=== PATIENT | male | born 1990 | race American Indian/Alaskan Native ===

== ENCOUNTER 2019-01-02 19:00 | Emergency (ER) | payer OTHER ==
[2019-01-02] MEDS ORDERED: Midazolam 5 MG/ML 10 ML MDV ONE (19:14)
[2019-01-02] MEDS ORDERED: Rocuronium 50 MG/5 ML Vial IVPUSH STA ×2 (19:36→21:55)
[2019-01-02] MEDS ORDERED: Midazolam 1 MG/ML 5 ML SDV IVPUSH STA (19:36)
[2019-01-02] MEDS ORDERED: Midazolam 50 MG in Sodium Chloride 0.9% 40 ML IV SCH (19:45)
[2019-01-02] MEDS ORDERED: Sodium Chloride 0.9% 1,000 ML IV SCH (19:45)
--- NOTE | 2019-01-02 19:57 | EDM.PDOC ---
ED HPI GENERAL MEDICAL PROBLEM - General Stated Complaint: [facility] Time Seen by Provider: 01/02/19 19:00 Source of Information: Reports: EMS History Limitations: Reports: Physical Impairment (Unresponsive) - History of Present Illness INITIAL COMMENTS - FREE TEXT/NARRATIVE: A medical alert was called for this patient. According to EMS, the patient was at a friend's house, drinking, when he suddenly collapsed around 18:25 CDT. His friends did bystander CPR and called EMS. EMS states that they arrived on scene about 4 minutes after they were called. They found the patient to be pulseless and apneic. CPR was begun and a laryngeal mask was placed. Narcan was given which did not initially seem to help. An IV and jig filler were placed. There was sinus tachycardia on the monitor, which has persisted the entire time that he has been on the monitor. Amiodarone and 2 mg of epinephrine were given. The patient developed a palpable pulse and respiratory effort, therefore the laryngeal mask was removed. The patient vomited en route. Upon arrival to the ED, the patient was unresponsive, receiving ventilations via BVM. Sinus tachycardia on the monitor. Systolic blood pressure approximately 185, but oxygen saturation in the low 80s, despite receiving 100% oxygen. Pupils pinpoint. Strong heart tones and peripheral pulses. Diffuse rhonchi on pulmonary auscultation. Abdomen soft. The decision was made to intubate for airway protection. The patient may have had a small amount of emesis just prior to being sedated. His head was immediately turned to the right , and his mouth suctioned. The patient's weight was estimated at 90 kg. He received 20 mg of IV Versed and 90 mg of IV rocuronium. An attempt was made to raise the patient's oxygen saturation as much as possible, but despite aggressive bagging, his oxygen saturation remained in the low 80s percent. He was then intubated with a 8.0 OETT, using a Mac 3 blade, to 23 cm at the incisors. The vocal cords were visualized. Positive colorimetric change. Tube fog noted. Positive bilateral chest rise. Breath sounds heard in both axillae. The ET tube was secured. Despite intubation, the patient's oxygen saturation constantino no higher than 88%. An OG tube was placed, followed by a portable chest x-ray, which appears to demonstrate the tip of the ET tube approximately 4.5-5 cm above the nestor, with the tip of the OGT in the esophagus, above the gastric air bubble. There appear to be diffuse opacities throughout both lungs, worse on the left than the right, consistent with aspiration pneumonitis. Formal read per the Radiologist pending. The patient was then taken to CT scan to receive a CT of the head without contrast and a CT angiogram of the chest. Orders were then entered. It does not appear that the patient has been to this ED before, therefore we have no knowledge of past medical, surgical, or social history. - Related Data Allergies Allergy/AdvReac Type Severity Reaction Status Date / Time Unable to Assess Allergy Unverified 01/02/19 20:15 Home Meds: Home Meds . [Unable to Verify Home Med List] 01/02/19 [History] ED ROS GENERAL - Review of Systems Review Of Systems: Unable To Obtain - Physical Exam Exam: See Below Exam Limited By: Other (Unconscious) General Appearance: WD/WN Eye Exam: Bilateral Eye: Abnormal Pupil (1-2 mm) Ears: Normal External Exam Nose: Normal Inspection Throat/Mouth: Normal Inspection, Normal Lips, Normal Teeth, Normal Gums, No Airway Compromise, Other (Uvular swelling noted at the time of intubation) Head Exam: Atraumatic, Normocephalic Neck: Normal Inspection, Supple, Full Range of Motion Respiratory/Chest: No Accessory Muscle Use, Rhonchi. No: Decreased Breath Sounds, Crackles, Wheezing, Stridor, Prolonged Expiration Cardiovascular: Normal Peripheral Pulses, No Edema, No Gallop, No JVD, No Murmur , No Rub, Tachycardia (regular) GI/Abdominal: Soft, No Organomegaly, No Distention, No Abnormal Bruit, No Mass (Male) Exam: Deferred Rectal (Males) Exam: Deferred Neuro Exam (Abbreviated): Unresponsive Extremities: Normal Inspection, Normal Capillary Refill Skin Exam: Warm, Dry, Intact, Normal Color, No Rash EKG INTERPRETATION EKG Date: 01/02/19 Time: 20:31 Rhythm: Other (Sinus tachycardia) Rate (Beats/Min): 147 [place]: Normal P-Wave: Present QRS: Normal (Late transition) ST-T: Normal QT: Prolonged (QYc 524 ms) Comparison: NA - No Prior EKG Course - Vital Signs Last Recorded V/S: Last Vital Signs Temp 36.6 C 01/02/19 20:10 Pulse 147 H 01/02/19 20:18 Resp 12 01/02/19 20:18 BP 152/90 H 01/02/19 20:18 Pulse Ox 80 L 01/02/19 20:18 - Orders/Labs/Meds Orders: Active Orders 24 hr Category Date Time Status EKG Documentation Completion [RC] STAT Care 01/02/19 19:32 Active Insert Oneal Catheter [Insert Urinary Catheter] [OM.PC] Care 01/02/19 19:45 Ordered Q24H Urinary Catheter Assessment [RC] ASDIRECTED Care 01/02/19 19:39 Active CULTURE BLOOD [BC] Stat Lab 01/02/19 20:50 Received CULTURE BLOOD [BC] Stat Lab 01/02/19 21:00 Received Midazolam [Versed 5 MG/ML] 50 mg Med 01/02/19 19:45 Active Sodium Chloride 0.9% [Normal Saline] 40 ml IV TITRATE Rocuronium [Zemuron] Med 01/02/19 21:55 Stat 90 mg IVPUSH ONETIME STA Sodium Chloride 0.9% [Normal Saline] 1,000 ml Med 01/02/19 19:45 Active IV ASDIRECTED Sodium Chloride 0.9% [Normal Saline] 100 ml Med 01/02/19 20:15 Active IV ASDIRECTED Blood Culture x2 Reflex Set [OM.PC] Stat Oth 01/02/19 19:35 Ordered Medication Orders Midazolam HCl 50 mg/ Sodium (Chloride) 50 mls @ 10 mls/hr IV TITRATE WOJCIECH Last Admin: 01/02/19 19:26 Dose: 10 mg/hr, 10 mls/hr Sodium Chloride (Normal Saline) 1,000 mls @ 100 mls/hr IV ASDIRECTED WOJCIECH Last Admin: 01/02/19 19:30 Dose: 100 mls/hr Sodium Chloride (Normal Saline) 100 mls @ 80 mls/hr IV ASDIRECTED WOJCIECH Last Admin: 01/02/19 20:38 Dose: 80 mls/hr Labs: Laboratory Tests 01/02/19 01/02/19 01/02/19 Range/Units 19:10 19:10 19:10 WBC 23.43 H (4.23-9.07) K/mm3 RBC 4.89 (4.63-6.08) M/mm3 Hgb 15.0 (13.7-17.5) gm/L Hct 45.8 (40.1-51.0) % MCV 93.7 H (79.0-92.2) fl MCH 30.7 (25.7-32.2) pg MCHC 32.8 (32.2-35.5) g/dl RDW Std Deviation 44.4 H (35.1-43.9) fL Plt Count 342 H (163-337) K/mm3 MPV 9.6 (9.4-12.3) fl Neutrophils % (Manual) 55 (40-60) % Band Neutrophils % 1 (0-10) % Lymphocytes % (Manual) 33 (20-40) % Atypical Lymphs % 3 % Monocytes % (Manual) 8 (2-10) % Eosinophils % (Manual) 0 L (0.8-7.0) % Basophils % (Manual) 0 L (0.2-1.2) Platelet Estimate Adequate RBC Morph Comment Normal PT (9.5-12.1) SECONDS INR APTT (24-31) SECONDS Puncture Site ABG pH (7.35-7.45) ABG pCO2 (35.0-45.0) mmHg ABG pO2 (80.0-100.0) mmHg ABG HCO3 (22.0-26.0) meq/L ABG O2 Saturation (96.0-97.0) % ABG Base Excess (-2-2.0) Wolf Test A-a Gradient mmHg O2 Delivery Device Oxygen Flow Rate FiO2 (21.00-100.00) % Sodium 143 (136-145) mEq/L Potassium 3.8 (3.5-5.1) mEq/L Chloride 108 H (98-107) mEq/L Carbon Dioxide 16 L (21-32) mEq/L Anion Gap 22.8 H (5-15) BUN 10 (7-18) mg/dL Creatinine 1.3 (0.7-1.3) mg/dL Est Cr Clr Drug Dosing TNP Estimated GFR (MDRD) > 60 (>60) mL/min BUN/Creatinine Ratio 7.7 L (14-18) Glucose 335 H (74-106) mg/dL Lactic Acid 7.1 H (0.4-2.0) mmol/L Calcium 7.6 L (8.5-10.1) mg/dL Magnesium 2.6 H (1.8-2.4) mg/dl Total Bilirubin 0.3 (0.2-1.0) mg/dL AST 110 H (15-37) U/L ALT 105 H (16-63) U/L Alkaline Phosphatase 83 (46-116) U/L Troponin I 0.055 (0.00-0.056) ng/mL Total Protein 7.4 (6.4-8.2) g/dl Albumin 3.7 (3.4-5.0) g/dl Globulin 3.7 gm/dL Albumin/Globulin Ratio 1.0 (1-2) Salicylates (2.8-20) mg/dL Urine Opiates Screen (XRFJBJ=162) Ur Buprenorphine Scrn (CUTOFF=10) Ur Oxycodone Screen (ALP4QK=605) Urine Methadone Screen (SYD7ZB=451) Ur Propoxyphene Screen (HYXGMJ=693) Acetaminophen 0 L (10-30) ug/mL Ur Barbiturates Screen (XTGRXE=308) Ur Tricyclics Screen (PDJCNE=025) Ur Phencyclidine Scrn (CUTOFF=25) Ur Amphetamine Screen (URPTQV=609) U Methamphetamines Scrn (MJXMPE=026) U Benzodiazepines Scrn (NCIWHK=658) U Cocaine Metab Screen (LWYHPB=841) U Marijuana (THC) Screen (CUTOFF=50) Ethyl Alcohol 0.18 (0.00) gm% Ketones (0.0-0.3) mM 01/02/19 01/02/19 01/02/19 Range/Units 19:10 19:10 19:10 WBC (4.23-9.07) K/mm3 RBC (4.63-6.08) M/mm3 Hgb (13.7-17.5) gm/L Hct (40.1-51.0) % MCV (79.0-92.2) fl MCH (25.7-32.2) pg MCHC (32.2-35.5) g/dl RDW Std Deviation (35.1-43.9) fL Plt Count (163-337) K/mm3 MPV (9.4-12.3) fl Neutrophils % (Manual) (40-60) % Band Neutrophils % (0-10) % Lymphocytes % (Manual) (20-40) % Atypical Lymphs % % Monocytes % (Manual) (2-10) % Eosinophils % (Manual) (0.8-7.0) % Basophils % (Manual) (0.2-1.2) Platelet Estimate RBC Morph Comment PT 10.9 (9.5-12.1) SECONDS INR 1.00 APTT 29 (24-31) SECONDS Puncture Site ABG pH (7.35-7.45) ABG pCO2 (35.0-45.0) mmHg ABG pO2 (80.0-100.0) mmHg ABG HCO3 (22.0-26.0) meq/L ABG O2 Saturation (96.0-97.0) % ABG Base Excess (-2-2.0) Wolf Test A-a Gradient mmHg O2 Delivery Device Oxygen Flow Rate FiO2 (21.00-100.00) % Sodium (136-145) mEq/L Potassium (3.5-5.1) mEq/L Chloride (98-107) mEq/L Carbon Dioxide (21-32) mEq/L Anion Gap (5-15) BUN (7-18) mg/dL Creatinine (0.7-1.3) mg/dL Est Cr Clr Drug Dosing Estimated GFR (MDRD) (>60) mL/min BUN/Creatinine Ratio (14-18) Glucose (74-106) mg/dL Lactic Acid (0.4-2.0) mmol/L Calcium (8.5-10.1) mg/dL Magnesium (1.8-2.4) mg/dl Total Bilirubin (0.2-1.0) mg/dL AST (15-37) U/L ALT (16-63) U/L Alkaline Phosphatase (46-116) U/L Troponin I (0.00-0.056) ng/mL Total Protein (6.4-8.2) g/dl Albumin (3.4-5.0) g/dl Globulin gm/dL Albumin/Globulin Ratio (1-2) Salicylates 3.0 (2.8-20) mg/dL Urine Opiates Screen Negative (NYUKNB=006) Ur Buprenorphine Scrn Negative (CUTOFF=10) Ur Oxycodone Screen Negative (QAZ2JN=805) Urine Methadone Screen Negative (NHM6SR=636) Ur Propoxyphene Screen Negative (QEBYPA=046) Acetaminophen (10-30) ug/mL Ur Barbiturates Screen Negative (OGZXSM=795) Ur Tricyclics Screen Negative (PZULHI=346) Ur Phencyclidine Scrn Negative (CUTOFF=25) Ur Amphetamine Screen Negative (SPJDAM=673) U Methamphetamines Scrn Negative (EDBXJF=402) U Benzodiazepines Scrn Negative (FZFBOZ=504) U Cocaine Metab Screen Negative (IKQWEI=019) U Marijuana (THC) Screen Presumptive positive H (CUTOFF=50) Ethyl Alcohol (0.00) gm% Ketones (0.0-0.3) mM 01/02/19 01/02/19 Range/Units 19:10 19:32 WBC (4.23-9.07) K/mm3 RBC (4.63-6.08) M/mm3 Hgb (13.7-17.5) gm/L Hct (40.1-51.0) % MCV (79.0-92.2) fl MCH (25.7-32.2) pg MCHC (32.2-35.5) g/dl RDW Std Deviation (35.1-43.9) fL Plt Count (163-337) K/mm3 MPV (9.4-12.3) fl Neutrophils % (Manual) (40-60) % Band Neutrophils % (0-10) % Lymphocytes % (Manual) (20-40) % Atypical Lymphs % % Monocytes % (Manual) (2-10) % Eosinophils % (Manual) (0.8-7.0) % Basophils % (Manual) (0.2-1.2) Platelet Estimate RBC Morph Comment PT (9.5-12.1) SECONDS INR APTT (24-31) SECONDS Puncture Site Rt radial ABG pH 6.96 L* (7.35-7.45) ABG pCO2 86.7 H* (35.0-45.0) mmHg ABG pO2 65.0 L (80.0-100.0) mmHg ABG HCO3 18.5 L (22.0-26.0) meq/L ABG O2 Saturation 78.4 L (96.0-97.0) % ABG Base Excess -17.3 L (-2-2.0) Wolf Test Positive A-a Gradient 466 mmHg O2 Delivery Device Ambu bag Oxygen Flow Rate 15.0 FiO2 100.00 (21.00-100.00) % Sodium (136-145) mEq/L Potassium (3.5-5.1) mEq/L Chloride (98-107) mEq/L Carbon Dioxide (21-32) mEq/L Anion Gap (5-15) BUN (7-18) mg/dL Creatinine (0.7-1.3) mg/dL Est Cr Clr Drug Dosing Estimated GFR (MDRD) (>60) mL/min BUN/Creatinine Ratio (14-18) Glucose (74-106) mg/dL Lactic Acid (0.4-2.0) mmol/L Calcium (8.5-10.1) mg/dL Magnesium (1.8-2.4) mg/dl Total Bilirubin (0.2-1.0) mg/dL AST (15-37) U/L ALT (16-63) U/L Alkaline Phosphatase (46-116) U/L Troponin I (0.00-0.056) ng/mL Total Protein (6.4-8.2) g/dl Albumin (3.4-5.0) g/dl Globulin gm/dL Albumin/Globulin Ratio (1-2) Salicylates (2.8-20) mg/dL Urine Opiates Screen (LYQGWK=358) Ur Buprenorphine Scrn (CUTOFF=10) Ur Oxycodone Screen (ASU0FE=774) Urine Methadone Screen (GDA3YD=439) Ur Propoxyphene Screen (OSEKBT=094) Acetaminophen (10-30) ug/mL Ur Barbiturates Screen (KWWTYQ=031) Ur Tricyclics Screen (SLGXWJ=481) Ur Phencyclidine Scrn (CUTOFF=25) Ur Amphetamine Screen (CXLYGR=012) U Methamphetamines Scrn (JKFYJD=025) U Benzodiazepines Scrn (DALTSS=744) U Cocaine Metab Screen (QFNIOV=825) U Marijuana (THC) Screen (CUTOFF=50) Ethyl Alcohol (0.00) gm% Ketones 0.21 (0.0-0.3) mM Meds: Medications Generic Name Dose Route Start Last Admin Trade Name Freq PRN Reason Stop Dose Admin Midazolam HCl 50 mg/ Sodium 50 mls @ 10 mls/hr 01/02/19 19:45 01/02/19 19:26 Chloride IV 10 mg/hr TITRATE WOJCIECH 10 mls/hr Administration 10 MG/HR Sodium Chloride 1,000 mls @ 100 mls/hr 01/02/19 19:45 01/02/19 19:30 Normal Saline IV 100 mls/hr ASDIRECTED WOCJIECH Administration Sodium Chloride 100 mls @ 80 mls/hr 01/02/19 20:15 01/02/19 20:38 Normal Saline IV 80 mls/hr ASDIRECTED WOJCIECH Administration Discontinued Medications Generic Name Dose Route Start Last Admin Trade Name José PRN Reason Stop Dose Admin Iopamidol 100 ml 01/02/19 20:06 01/02/19 20:37 Isovue-370 (76%) IV 01/02/19 20:07 100 ml ONETIME ONE Administration Midazolam HCl 20 mg 01/02/19 19:36 01/02/19 19:13 Versed 1 Mg/Ml IVPUSH 01/02/19 19:37 20 mg ONETIME STA Administration Rocuronium [place] 90 mg 01/02/19 19:36 01/02/19 19:13 Zemuron IVPUSH 01/02/19 19:37 90 mg ONETIME STA Administration - Re-Assessments/Exams Free Text/Narrative Re-Assessment/Exam: 01/02/19 20:13 The patient has returned from CT scan. I'm told that there may have been some technical difficulties with the CT angiogram of the chest. Both the ET tube and OG tube have been repositioned. I have ordered a repeat portable chest radiograph to assess their new positions. 01/02/19 20:18 Notified by the senior service technician that the quality of the CT angiogram will likely be low, for a number of technical reasons, but they do not feel that a repeat study would be any better. 01/02/19 20:46 CT of the head without contrast is read by Dr. Ramos as: 1. Questionable findings along the cerebellar tentorium as noted above, MRI would be helpful to further evaluate to confirm or rule out blood along the tentorium. 2. Other findings which are felt to be incidental as described above. CT angiogram of the chest is read by Dr. Ramos as: 1. Diffuse parenchymal densities within the dependent portion of both upper and lower lungs. Differential includes diffuse pneumonia as well as pulmonary edema. Please rule out acute cardiac event as an etiology for pulmonary edema. Neurogenic pulmonary edema is also within the differential. 2. Suboptimal opacification of the pulmonary arteries. No large or pulmonary emboli are seen but smaller distal segmental or subsegmental pulmonary emboli could easily be missed. 01/02/19 20:52 Repeat portable chest x-ray is read by Dr. Ramos as: 1. Tip of nasogastric tube slightly below the gastroesophageal junction but should be advanced by another 5-9 cm for optimal position. 2. Diffuse perihilar parenchymal densities remain. 3. Tip of endotracheal tube at the upper level of the clavicles. 01/02/19 21:39 Case discussed with Mary at [facility] at 21:00 All imagess pushed to [facility] at 21:01. Case then discussed with Dr. Higuera, Neurosurgeon at [facility], at 21:13. He felt that the patient's brain was likely dying, and he did not see an indication for neurosurgery. Case then discussed with Dr. Seo, Relationship Specialist at [facility], at 21 :15. She discussed the case with their Interventional Radiologist. They are concerned that the patient may need a cerebral angiogram via a Neurointerventionalist, which they do not have. By coincidence, a large helicopter that can fly al the way to [place] is en route here to rock picker another patient, who, in my opinion, is not as ill as this patient. We may be able to use the large helicopter to fly this patient to [place]. Case then discussed with [facility] at 21:25. All images were pushed to [facility] at 21:25. Case then discussed with Dr. Bob, ED Physician at [facility], at 21:31. He accepted the patient for transfer to their ED. Notified that the large helicopter will be able to accommodate the patient. 01/02/19 21:55 The flight crew is here. He will think about 15-20 minutes for them to refuel. In meantime, we will make up a new Versed drip bag, and the patient will receive a repeat dose of rocuronium 90 mg. Initial vent settings to be A/C 14/ .500/5/1.0. Departure - Departure Time of Disposition: 21:40 Disposition: DC/Tfer to Acute Hospital 02 Condition: Critical Clinical Impression: High anion gap metabolic acidosis, Lactic acidosis, Respiratory acidosis, Spontaneous intracranial hemorrhage, Unconscious - Discharge Information *PRESCRIPTION DRUG MONITORING PROGRAM REVIEWED*: Not Applicable *COPY OF PRESCRIPTION DRUG MONITORING REPORT IN PATIENT ASHA: Not Applicable Referrals: PCP,None [Primary Care Provider] - - My Orders Last 24 Hours: My Active Orders 01/02/19 19:32 EKG Documentation Completion [RC] STAT 01/02/19 19:35 Blood Culture x2 Reflex Set [OM.PC] Stat 01/02/19 19:39 Urinary Catheter Assessment [RC] ASDIRECTED 01/02/19 19:45 Insert Oneal Catheter [Insert Urinary Catheter] [OM.PC] Q24H Midazolam [Versed 5 MG/ML] 50 mg Sodium Chloride 0.9% [Normal Saline] 40 ml IV TITRATE Sodium Chloride 0.9% [Normal Saline] 1,000 ml IV ASDIRECTED 01/02/19 20:15 Sodium Chloride 0.9% [Normal Saline] 100 ml IV ASDIRECTED 01/02/19 20:50 CULTURE BLOOD [BC] Stat 01/02/19 21:00 CULTURE BLOOD [BC] Stat 01/02/19 21:55 Rocuronium [Zemuron] 90 mg IVPUSH ONETIME STA - Assessment/Plan Last 24 Hours: My Active Orders 01/02/19 19:32 EKG Documentation Completion [RC] STAT 01/02/19 19:35 Blood Culture x2 Reflex Set [OM.PC] Stat 01/02/19 19:39 Urinary Catheter Assessment [RC] ASDIRECTED 01/02/19 19:45 Insert Oneal Catheter [Insert Urinary Catheter] [OM.PC] Q24H Midazolam [Versed 5 MG/ML] 50 mg Sodium Chloride 0.9% [Normal Saline] 40 ml IV TITRATE Sodium Chloride 0.9% [Normal Saline] 1,000 ml IV ASDIRECTED 01/02/19 20:15 Sodium Chloride 0.9% [Normal Saline] 100 ml IV ASDIRECTED 01/02/19 20:50 CULTURE BLOOD [BC] Stat 01/02/19 21:00 CULTURE BLOOD [BC] Stat 01/02/19 21:55 Rocuronium [Zemuron] 90 mg IVPUSH ONETIME STA ED ET INTUBATION - Endotracheal Intubation ET Intubation Indication: Airway Protection Preparation: Suction, Balloon Tested, BVM Set Up, Difficult Airway Equip Airway Assessment: Obese Pre-oxygenation: assisted with BVM Paralysis: midazolam (versed) (20 mg), rocuronium (zemuron) (90 mg) Placement: Orotracheal, Cuffed, Uncomplicated Placement ETT Size In mm: 8.0 Number of Attempts: 1 Post intubation tube placement confirmed by: CO2 change, tube fog, chest rise, bilateral breath sounds, CXR
[2019-01-02] MEDS ORDERED: Iopamidol 755 Mg/ML 200 ML Bottle IV ONE (20:06)
[2019-01-02] MEDS ORDERED: Sodium Chloride 0.9% 100 ML IV SCH (20:15)
[2019-01-02 20:23] LABS: ACETAMINOPHEN 0 ug/mL (10-30)
--- NOTE | 2019-01-02 20:42 | CR ---
Chest: Portable view of the chest was obtained. Comparison: No prior chest x-ray. Findings: Diffuse perihilar densities are noted on both sides. Areas of bronchial wall thickening are seen. Findings could be infectious as well as representing pulmonary edema from acute cardiac event. Endotracheal tube is seen with tip lying slightly above the level of the clavicles. Nasogastric tube is seen with tip not being definitely identified but most likely lies slightly above the gastroesophageal junction. Impression: 1. Multiple findings as noted above. Diagnostic code #5
--- NOTE | 2019-01-02 20:42 | CT ---
Head CT Technique: Multiple axial sections through the brain were obtained. Intravenous contrast was not utilized. Comparison: Prior head CT study of 10/29/10. Findings: Slight increased density is seen along the cerebellar tentorium. This may be related to sectioning of the tentorium but difficult to exclude blood as the etiology for the increased density along the tentorium. No abnormal parenchymal densities are seen. No midline shift is seen. Slight asymmetric size of the lateral ventricles are noted which is a chronic finding and stable from prior CT exam. Scalp lesion is noted within the frontal region believed to be incidental. Mucosal thickening is noted within the ethmoid sinuses most likely from nasogastric tube and endotracheal tube placement. Bone window settings were reviewed which shows no acute calvarial abnormality. Slight mucosal thickening noted within the maxillary sinuses which is felt to be incidental. Impression: 1. Questionable findings along the cerebellar tentorium as noted above, MRI would be helpful to further evaluate to confirm or rule out blood along the tentorium. 2. Other findings which are felt to be incidental as described above. Diagnostic code #5
--- NOTE | 2019-01-02 20:45 | CT ---
CT chest Technique: Multiple axial sections through the chest were obtained. Intravenous contrast was utilized. Findings: Pulmonary arteries are suboptimally opacified. No filling defects are seen within the main or proximal segmental branches. More distal segmental or subsegmental pulmonary emboli could easily be missed. Diffuse parenchymal densities are noted within the posterior lung bases within the upper lungs and lower lungs. These are within the dependent portions of the chest. Endotracheal tube is seen which lies above the nestor. Nasogastric tube is seen which shows the tip to terminate above the gastroesophageal junction. Small portion of the visualized upper abdominal structures are within normal limits. Bone window settings were reviewed which show no acute osseous abnormality. Impression: 1. Diffuse parenchymal densities within the dependent portion of both upper and lower lungs. Differential includes diffuse pneumonia as well as pulmonary edema. Please rule out acute cardiac event as an etiology for pulmonary edema. Neurogenic pulmonary edema is also within the differential. 2. Suboptimal opacification of the pulmonary arteries. No larger pulmonary emboli are seen but smaller distal segmental or subsegmental pulmonary emboli could easily be missed. 3. Tip of nasogastric tube above the gastroesophageal junction which should be advanced. Endotracheal tube lies above the nestor in satisfactory position. Diagnostic code #5
--- NOTE | 2019-01-02 20:49 | CR ---
Chest: Frontal view of the chest was obtained. Comparison: Prior chest x-ray performed earlier in the same day (7:19 PM). Endotracheal tube lies at the level superior clavicles. Nasogastric tube has been advanced and now shows the tip to lie slightly past the gastroesophageal junction slightly within the stomach. This should be advanced by an additional 5-9 cm. Diffuse perihilar parenchymal densities remain. Heart size and mediastinum are normal. Bony structures are unremarkable. Impression: 1. Tip of nasogastric tube slightly below the gastroesophageal junction but should be advanced by another 5-9 cm for optimal position. 2. Diffuse perihilar parenchymal densities remain. 3. Tip of endotracheal tube at the upper level of the clavicles. Diagnostic code #3
[2019-01-02] MEDS ORDERED: Sodium Bicarbonate 8.4% 50 MEQ/50 ML Syringe ONE (22:09)
[2019-01-02] MEDS ORDERED: Sodium Bicarbonate 8.4% 50 MEQ/50 ML Syringe IVPUSH ONE (22:09)
== END 2019-01-02 22:35 ==
LOC: JD.ED 19:00
DX: I62.9 Nontraumatic intracranial hemorrhage, unspecified (principal); E87.4 Mixed disorder of acid-base balance; E87.2 Acidosis
CPT/HCPCS: 31500; 36415; 36600; 43752; 51702; 70450; 71045; 71275; 80053; 80306; 82009; 82803; 83605; 83735; 84484; 85007; 85027; 85610; 85730; 87040; 93005; 96365; 96366; 96375; 96376; 99291; 99292; G0480; J2250; J7030; J7040; J7050; Q9967; 93010